=== PATIENT | male | born 1940 | race Caucasian/White ===

== ENCOUNTER 2022-06-01 19:50 | Inpatient (IN) | payer OTHER, BC ==
[2022-06-01 20:01] VITALS: BMI 27.4
[2022-06-01 21:06] LABS: VENOUS BASE EXCESS -0.8 mmol/L (-2-2); VENOUS PCO2 49.5 mmHg (38-52); VENOUS PH 7.335 (7.310-7.410)
[2022-06-01 21:09] LABS: BASO % 0.7 % (0-2.0); EOS % 1.8 % (0-4.5); HEMATOCRIT 47.8 % (35.4-49); HEMOGLOBIN 15.9 GM/dL (11.7-16.9); LYMPH % 8.9 % (8-40); MCH 30.1 pg (25.7-33.7); MCHC 33.2 g/dl (32.0-35.9); MEAN CELL VOLUME 90.7 fl (80-96); MONO % 8.8 % (3.8-10.2); NEUT % 79.8 % (42.8-82.8); PLATELET COUNT 257 10^3/uL (134-434); RBC 5.27 M/mm3 (4.00-5.60); RDW 15.1 % (11.9-15.9); WHITE BLOOD COUNT 10.3 K/mm3 (4.0-10.0)
[2022-06-01 21:25] LABS: BLOOD UREA NITROGEN 14.2 mg/dL (7-18); CALCIUM 8.9 mg/dL (8.5-10.1)
[2022-06-01 21:26] LABS: MAGNESIUM 2.2 mg/dL (1.8-2.4)
[2022-06-01 21:28] LABS: CREATININE 0.7 mg/dL (0.55-1.3)
[2022-06-01 21:30] LABS: BILIRUBIN,TOTAL 0.5 mg/dL (0.2-1)
[2022-06-01 21:33] LABS: N-TERMINAL BNP 896.9 pg/ml (5-450)
[2022-06-01 23:21] LABS: INR 1.52 (0.83-1.09); PROTHROMBIN TIME (PATIENT) 17.6 SEC (9.7-13.0)
[2022-06-01 23:24] LABS: ACTIVATED PTT 36.7 SECONDS (25.2-36.5)
[2022-06-02] MEDS ORDERED: IPRATROPIUM BR 0.02% 0.5 MG/2.5 ML VIAL.NEB. NEB PRN (06:26)
[2022-06-02] MEDS: LEVOTHYROXINE 100 MCG, LEVOTHYROXINE 75 MCG PO SCH (07:36)
[2022-06-02] MEDS: FUROSEMIDE 40 MG/4 ML INJECTABLE VIAL IVPUSH SCH ×2 (07:36→12:18)
[2022-06-02] MEDS: TAMSULOSIN HCL 0.4 MG CAP PO SCH (08:32)
[2022-06-02 08:54] LABS: HEMATOCRIT 48.7 % (35.4-49); HEMOGLOBIN 16.6 GM/dL (11.7-16.9); LYMPH % 11.5 % (8-40); MCH 30.7 pg (25.7-33.7); MCHC 34.1 g/dl (32.0-35.9); MONO % 10.7 % (3.8-10.2); NEUT % 70.8 % (42.8-82.8); PLATELET COUNT 250 10^3/uL (134-434); RDW 15.2 % (11.9-15.9); WHITE BLOOD COUNT 10.3 K/mm3 (4.0-10.0)
[2022-06-02 09:18] LABS: CALCIUM 9.6 mg/dL (8.5-10.1)
[2022-06-02 09:19] LABS: ALBUMIN 3.1 g/dl (3.4-5.0); BLOOD UREA NITROGEN 12.6 mg/dL (7-18); MAGNESIUM 2.2 mg/dL (1.8-2.4)
[2022-06-02 09:22] LABS: CREATININE 0.7 mg/dL (0.55-1.3); PHOSPHOROUS 3.4 mg/dL (2.5-4.9)
[2022-06-02 09:23] LABS: BILIRUBIN,TOTAL 0.8 mg/dL (0.2-1); TOT PROT 7.4 g/dl (6.4-8.2)
[2022-06-02] MEDS: METOPROLOL TARTRATE 25 MG TABLET (FP) PO SCH ×2 (09:43→21:12)
[2022-06-02] MEDS: predniSONE 10 MG TABLET (UD) PO SCH (09:43)
[2022-06-02] MEDS: APIXABAN 5 MG TABLET PO SCH ×2 (09:43→21:12)
[2022-06-02] MEDS: PANTOPRAZOLE 20 MG TABLET PO SCH (09:43)
[2022-06-02] MEDS: BUDESONIDE/FORMETEROL FUMARATE 80/4.5 mcg INHALER IH SCH ×2 (09:43→21:12)
[2022-06-02] MEDS: CITALOPRAM HYDROBROMIDE 20 MG TABLET PO SCH (09:43)
[2022-06-02] MEDS: MULTIVITAMINS (DAILY MVI) TABLET (FP) PO SCH (09:44)
[2022-06-02] MEDS ORDERED: LEVOTHYROXINE NA 125 MCG TABLET (FP) PO SCH (10:00)
[2022-06-02] MEDS: ATORVASTATIN CA 10 MG TABLET (FP) PO SCH (21:12)
[2022-06-03] MEDS: LEVOTHYROXINE 100 MCG, LEVOTHYROXINE 75 MCG PO SCH (06:19)
[2022-06-03] MEDS: TAMSULOSIN HCL 0.4 MG CAP PO SCH (08:14)
[2022-06-03 09:19] LABS: BASO % 0.7 % (0-2.0); EOS % 5.4 % (0-4.5); HEMATOCRIT 47.8 % (35.4-49); HEMOGLOBIN 15.8 GM/dL (11.7-16.9); LYMPH % 9.2 % (8-40); MCH 29.8 pg (25.7-33.7); MEAN CELL VOLUME 90.1 fl (80-96); MEAN PLT VOLUME 8.3 fl (7.5-11.1); NEUT % 73.7 % (42.8-82.8); PLATELET COUNT 260 10^3/uL (134-434); RBC 5.31 M/mm3 (4.00-5.60); WHITE BLOOD COUNT 10.9 K/mm3 (4.0-10.0)
[2022-06-03] MEDS: APIXABAN 5 MG TABLET PO SCH ×2 (09:29→22:47)
[2022-06-03] MEDS: MULTIVITAMINS (DAILY MVI) TABLET (FP) PO SCH (09:29)
[2022-06-03] MEDS: predniSONE 10 MG TABLET (UD) PO SCH (09:29)
[2022-06-03] MEDS: CITALOPRAM HYDROBROMIDE 20 MG TABLET PO SCH (09:29)
[2022-06-03] MEDS: FUROSEMIDE 40 MG TABLET (FP) PO SCH (09:29)
[2022-06-03] MEDS: METOPROLOL TARTRATE 25 MG TABLET (FP) PO SCH ×2 (09:29→22:47)
[2022-06-03] MEDS: PANTOPRAZOLE 20 MG TABLET PO SCH (09:29)
[2022-06-03] MEDS: BUDESONIDE/FORMETEROL FUMARATE 80/4.5 mcg INHALER IH SCH ×2 (09:30→22:47)
[2022-06-03 09:53] LABS: ALBUMIN 2.8 g/dl (3.4-5.0)
[2022-06-03 09:57] LABS: BILIRUBIN,TOTAL 0.8 mg/dL (0.2-1); TOT PROT 6.6 g/dl (6.4-8.2)
[2022-06-03 09:59] LABS: BLOOD UREA NITROGEN 17.7 mg/dL (7-18); CREATININE 0.7 mg/dL (0.55-1.3)
[2022-06-03] MEDS: ATORVASTATIN CA 10 MG TABLET (FP) PO SCH (22:47)
[2022-06-04] MEDS: LEVOTHYROXINE 100 MCG, LEVOTHYROXINE 75 MCG PO SCH (06:44)
[2022-06-04 08:59] LABS: BASO % 1.1 % (0-2.0); EOS % 6.2 % (0-4.5); HEMOGLOBIN 15.5 GM/dL (11.7-16.9); LYMPH % 12.7 % (8-40); MCH 29.7 pg (25.7-33.7); MEAN CELL VOLUME 89.9 fl (80-96); MEAN PLT VOLUME 8.3 fl (7.5-11.1); MONO % 12.1 % (3.8-10.2); NEUT % 67.9 % (42.8-82.8); PLATELET COUNT 238 10^3/uL (134-434); RBC 5.23 M/mm3 (4.00-5.60); RDW 14.7 % (11.9-15.9); WHITE BLOOD COUNT 9.3 K/mm3 (4.0-10.0)
[2022-06-04 09:16] LABS: ALBUMIN 2.7 g/dl (3.4-5.0); CALCIUM 8.8 mg/dL (8.5-10.1)
[2022-06-04 09:17] LABS: BLOOD UREA NITROGEN 16.1 mg/dL (7-18)
[2022-06-04 09:20] LABS: CREATININE 0.7 mg/dL (0.55-1.3)
[2022-06-04 09:21] LABS: BILIRUBIN,TOTAL 0.9 mg/dL (0.2-1); TOT PROT 6.4 g/dl (6.4-8.2)
[2022-06-04] MEDS ORDERED: INSULIN (NOVOLOG) ASPART 100 UNITS/ML 10ML VIAL ONE (11:08)
[2022-06-04] MEDS: APIXABAN 5 MG TABLET PO SCH ×2 (11:16→22:02)
[2022-06-04] MEDS: TAMSULOSIN HCL 0.4 MG CAP PO SCH (11:16)
[2022-06-04] MEDS: PANTOPRAZOLE 20 MG TABLET PO SCH (11:16)
[2022-06-04] MEDS: predniSONE 10 MG TABLET (UD) PO SCH (11:16)
[2022-06-04] MEDS: CITALOPRAM HYDROBROMIDE 20 MG TABLET PO SCH (11:16)
[2022-06-04] MEDS: METOPROLOL TARTRATE 25 MG TABLET (FP) PO SCH ×2 (11:16→22:11)
[2022-06-04] MEDS: FUROSEMIDE 40 MG TABLET (FP) PO SCH (11:16)
[2022-06-04] MEDS: MULTIVITAMINS (DAILY MVI) TABLET (FP) PO SCH (11:16)
[2022-06-04] MEDS: BUDESONIDE/FORMETEROL FUMARATE 80/4.5 mcg INHALER IH SCH ×2 (11:17→22:02)
[2022-06-04] MEDS: ATORVASTATIN CA 10 MG TABLET (FP) PO SCH (22:02)
[2022-06-05] MEDS: LEVOTHYROXINE 100 MCG, LEVOTHYROXINE 75 MCG PO SCH (06:07)
[2022-06-05 10:37] VITALS: BP 104/66; PULSE 105; RESP 20; TEMP 97.8
[2022-06-05] MEDS: METOPROLOL TARTRATE 25 MG TABLET (FP) PO SCH (10:40)
[2022-06-05] MEDS: TAMSULOSIN HCL 0.4 MG CAP PO SCH (10:40)
[2022-06-05] MEDS: BUDESONIDE/FORMETEROL FUMARATE 80/4.5 mcg INHALER IH SCH (10:40)
[2022-06-05] MEDS: MULTIVITAMINS (DAILY MVI) TABLET (FP) PO SCH (10:41)
[2022-06-05] MEDS: predniSONE 10 MG TABLET (UD) PO SCH (10:41)
[2022-06-05] MEDS: PANTOPRAZOLE 20 MG TABLET PO SCH (10:41)
[2022-06-05] MEDS: CITALOPRAM HYDROBROMIDE 20 MG TABLET PO SCH (10:41)
[2022-06-05] MEDS: FUROSEMIDE 40 MG TABLET (FP) PO SCH (10:41)
[2022-06-05] MEDS: APIXABAN 5 MG TABLET PO SCH (10:41)
== END 2022-06-05 12:50 | DRG 196 ==
LOC: JER 19:50 → JERBED 20:17 → J7W 06-02 06:41
PROVIDERS: ADMIT Internal Medicine; ATTEND Internal Medicine
DX: J84.9 Interstitial pulmonary disease, unspecified (principal); J96.21 Acute and chronic respiratory failure with hypoxia; J96.22 Acute and chronic respiratory failure with hypercapnia; C78.00 Secondary malignant neoplasm of unspecified lung; I50.30 Unspecified diastolic (congestive) heart failure; D72.829 Elevated white blood cell count, unspecified; I73.9 Peripheral vascular disease, unspecified; F32.A Depression, unspecified; C43.9 Malignant melanoma of skin, unspecified; E03.9 Hypothyroidism, unspecified; F03.90 Unspecified dementia, unspecified severity, without behavioral disturbance, psychotic disturbance, mood disturbance, and anxiety; I11.0 Hypertensive heart disease with heart failure; D64.9 Anemia, unspecified; I48.91 Unspecified atrial fibrillation; K21.9 Gastro-esophageal reflux disease without esophagitis; E78.5 Hyperlipidemia, unspecified; N40.0 Benign prostatic hyperplasia without lower urinary tract symptoms
CPT/HCPCS: 0241U-QW; 36415; 71045-TC-FY; 71275-TC; 80053; 82550; 82803; 83690; 83735; 83880; 84100; 84484; 85025; 85610; 85730; 93005; 93010; 97116-GP; 97161-GP; 99285-25

== ENCOUNTER 2023-03-07 21:02 | Inpatient (IN) | payer OTHER, BC ==
[2023-03-07 21:44] LABS: BASO % 0.5 % (0-2.0); EOS % 0.8 % (0-4.5); HEMATOCRIT 50.6 % (35.4-49); HEMOGLOBIN 16.8 GM/dL (11.7-16.9); LYMPH % 6.8 % (8-40); MCH 29.6 pg (25.7-33.7); MCHC 33.2 g/dl (32.0-35.9); MEAN CELL VOLUME 89.1 fl (80-96); MEAN PLT VOLUME 7.7 fl (7.5-11.1); MONO % 7.9 % (3.8-10.2); PLATELET COUNT 283 10^3/uL (134-434); RBC 5.68 M/mm3 (4.00-5.60); RDW 16.4 % (11.9-15.9); WHITE BLOOD COUNT 13.5 K/mm3 (4.0-10.0)
[2023-03-07 21:52] LABS: VENOUS BASE EXCESS 0.6 mmol/L (-2-2); VENOUS O2 SATURATION 46.1 % (70-80); VENOUS PCO2 50.4 mmHg (38-52); VENOUS PH 7.351 (7.310-7.410)
[2023-03-07 21:55] LABS: INR 1.56 (0.83-1.09)
[2023-03-07 21:58] LABS: ACTIVATED PTT 36.2 SECONDS (25.2-36.5)
[2023-03-07] MEDS ORDERED: ACETAMINOPHEN 1000 MG/100 ML BAG IVPB ONE (22:00)
[2023-03-07] MEDS ORDERED: ACETAMINOPHEN INJECTION 100 ML IVPB ONE (22:03)
[2023-03-07 22:04] LABS: POTASSIUM 3.9 mmol/L (3.5-5.1)
[2023-03-07 22:06] LABS: CALCIUM 8.6 mg/dL (8.5-10.1)
[2023-03-07 22:07] LABS: ALBUMIN 2.9 g/dl (3.4-5.0); MAGNESIUM 2.1 mg/dL (1.8-2.4)
[2023-03-07 22:11] LABS: BILIRUBIN,TOTAL 0.6 mg/dL (0.2-1); TOT PROT 7.2 g/dl (6.4-8.2)
[2023-03-07] MEDS ORDERED: PIPERACILLIN/TAZOB 3.375 GM 3.375 GM in DEXTROSE 5%-WATER - 50 ML IVPB ONE (23:28)
[2023-03-07] MEDS ORDERED: VANCOMYCIN 1,000 MG in DEXTROSE 5%-WATER - 250 ML IVPB ONE (23:28)
[2023-03-08] MEDS ORDERED: PIPERACILLIN/TAZOB 3.375 GM 3.375 GM/50 ML BAG IVPB ONE (00:04)
[2023-03-08] MEDS ORDERED: VANCOMYCIN 1 GRAM (PRE-DOCKED) 1,000 MG/250 ML BAG IVPB ONE (00:59)
[2023-03-08] MEDS ORDERED: IPRATROPIUM BR 0.02% 0.5 MG/2.5 ML VIAL.NEB. NEB PRN (06:07)
[2023-03-08 06:28] LABS: HEMATOCRIT 48.4 % (35.4-49); HEMOGLOBIN 15.7 GM/dL (11.7-16.9); MCH 29.5 pg (25.7-33.7); MCHC 32.4 g/dl (32.0-35.9); MEAN CELL VOLUME 90.9 fl (80-96); MEAN PLT VOLUME 7.8 fl (7.5-11.1); PLATELET COUNT 261 10^3/uL (134-434); RBC 5.33 M/mm3 (4.00-5.60); RDW 16.1 % (11.9-15.9); WHITE BLOOD COUNT 11.2 K/mm3 (4.0-10.0)
[2023-03-08 06:37] LABS: INR 1.45 (0.83-1.09); PROTHROMBIN TIME (PATIENT) 16.8 SEC (9.7-13.0)
[2023-03-08 06:47] LABS: POTASSIUM 3.7 mmol/L (3.5-5.1)
[2023-03-08 06:49] LABS: CALCIUM 8.4 mg/dL (8.5-10.1)
[2023-03-08 06:50] LABS: ALBUMIN 2.6 g/dl (3.4-5.0); BLOOD UREA NITROGEN 16.2 mg/dL (7-18)
[2023-03-08 06:53] LABS: CREATININE 0.9 mg/dL (0.55-1.3); PHOSPHOROUS 3.1 mg/dL (2.5-4.9)
[2023-03-08 06:55] LABS: TOT PROT 6.5 g/dl (6.4-8.2)
[2023-03-08] MEDS ORDERED: LEVOTHYROXINE NA 150 MCG TABLET PO SCH (07:00)
[2023-03-08 07:01] LABS: BILIRUBIN,DIRECT 0.2 mg/dL (0.0-0.2); BILIRUBIN,TOTAL 0.8 mg/dL (0.2-1)
[2023-03-08] MEDS ORDERED: FENTANYL CITRATE/PF 50 MCG/ML VIAL IVPUSH ONE (07:45)
[2023-03-08] MEDS ORDERED: MIDAZOLAM HCL 2 MG/2 ML SINGLE DOSE VIAL IVPUSH ONE (08:00)
[2023-03-08] MEDS ORDERED: PIPERACILLIN/TAZOB 3.375 GM 3.375 GM in DEXTROSE 5%-WATER - 50 ML IVPB SCH (10:00)
[2023-03-08] MEDS ORDERED: ACETAMINOPHEN 325 MG TABLET (FP) PO PRN (10:22)
[2023-03-08] MEDS: BUDESONIDE/FORMETEROL FUMARATE 80/4.5 mcg INHALER IH SCH ×2 (10:49→22:03)
[2023-03-08] MEDS: TAMSULOSIN HCL 0.4 MG CAP PO SCH (10:50)
[2023-03-08] MEDS: FUROSEMIDE 40 MG TABLET (FP) PO SCH (10:50)
[2023-03-08] MEDS: predniSONE 10 MG TABLET (UD) PO SCH (10:51)
[2023-03-08] MEDS: CITALOPRAM HYDROBROMIDE 20 MG TABLET PO SCH (10:51)
[2023-03-08] MEDS: PANTOPRAZOLE 40 MG TABLET PO SCH (10:51)
[2023-03-08] MEDS: METOPROLOL TARTRATE 25 MG TABLET (FP) PO SCH ×2 (10:51→22:03)
[2023-03-08] MEDS ORDERED: LEVOTHYROXINE NA 75 MCG TABLET (FP) ONE (16:54)
[2023-03-08] MEDS: LEVOTHYROXINE 75 MCG, LEVOTHYROXINE 100 MCG PO SCH (18:22)
[2023-03-08] MEDS: ATORVASTATIN CA 10 MG TABLET (FP) PO SCH (22:03)
[2023-03-09] MEDS ORDERED: ACETAMINOPHEN 1000 MG/100 ML BAG IVPB ONE (06:18)
[2023-03-09 06:32] LABS: HEMATOCRIT 45.9 % (35.4-49); MCH 29.8 pg (25.7-33.7); MCHC 32.8 g/dl (32.0-35.9); MEAN PLT VOLUME 7.8 fl (7.5-11.1); PLATELET COUNT 242 10^3/uL (134-434); RBC 5.04 M/mm3 (4.00-5.60); RDW 16.1 % (11.9-15.9); WHITE BLOOD COUNT 10.2 K/mm3 (4.0-10.0)
[2023-03-09 06:53] LABS: POTASSIUM 3.7 mmol/L (3.5-5.1)
[2023-03-09 06:56] LABS: CALCIUM 8.5 mg/dL (8.5-10.1); MAGNESIUM 1.9 mg/dL (1.8-2.4)
[2023-03-09 06:57] LABS: BLOOD UREA NITROGEN 14.3 mg/dL (7-18)
[2023-03-09] MEDS: LEVOTHYROXINE 75 MCG, LEVOTHYROXINE 100 MCG PO SCH (06:57)
[2023-03-09] MEDS: PANTOPRAZOLE 40 MG TABLET PO SCH (06:57)
[2023-03-09 07:00] LABS: CREATININE 0.7 mg/dL (0.55-1.3); PHOSPHOROUS 2.9 mg/dL (2.5-4.9)
[2023-03-09] MEDS: FUROSEMIDE 40 MG TABLET (FP) PO SCH (10:00)
[2023-03-09] MEDS: CITALOPRAM HYDROBROMIDE 20 MG TABLET PO SCH (10:00)
[2023-03-09] MEDS: predniSONE 10 MG TABLET (UD) PO SCH (10:00)
[2023-03-09] MEDS: TAMSULOSIN HCL 0.4 MG CAP PO SCH (10:01)
[2023-03-09] MEDS: METOPROLOL TARTRATE 25 MG TABLET (FP) PO SCH ×2 (10:01→21:37)
[2023-03-09] MEDS: BUDESONIDE/FORMETEROL FUMARATE 80/4.5 mcg INHALER IH SCH ×2 (10:01→21:39)
[2023-03-09] MEDS: APIXABAN 5 MG TABLET PO SCH ×2 (15:01→21:37)
[2023-03-09] MEDS: ATORVASTATIN CA 10 MG TABLET (FP) PO SCH (21:38)
[2023-03-10] MEDS: PANTOPRAZOLE 40 MG TABLET PO SCH (06:01)
[2023-03-10] MEDS: LEVOTHYROXINE 75 MCG, LEVOTHYROXINE 100 MCG PO SCH (06:02)
[2023-03-10 07:22] LABS: BASO % 0.7 % (0-2.0); EOS % 3.9 % (0-4.5); HEMATOCRIT 46.9 % (35.4-49); LYMPH % 11.6 % (8-40); MCH 29.3 pg (25.7-33.7); MEAN CELL VOLUME 91.5 fl (80-96); MONO % 9.3 % (3.8-10.2); NEUT % 74.5 % (42.8-82.8); PLATELET COUNT 256 10^3/uL (134-434); RBC 5.13 M/mm3 (4.00-5.60); RDW 16.3 % (11.9-15.9); WHITE BLOOD COUNT 10.2 K/mm3 (4.0-10.0)
[2023-03-10 07:29] LABS: POTASSIUM 3.9 mmol/L (3.5-5.1)
[2023-03-10 07:34] LABS: CALCIUM 8.2 mg/dL (8.5-10.1)
[2023-03-10 07:35] LABS: ALBUMIN 2.3 g/dl (3.4-5.0); BLOOD UREA NITROGEN 16.8 mg/dL (7-18); MAGNESIUM 2.1 mg/dL (1.8-2.4)
[2023-03-10 07:38] LABS: CREATININE 0.8 mg/dL (0.55-1.3); PHOSPHOROUS 2.6 mg/dL (2.5-4.9)
[2023-03-10 07:39] LABS: BILIRUBIN,TOTAL 0.8 mg/dL (0.2-1)
[2023-03-10] MEDS: TAMSULOSIN HCL 0.4 MG CAP PO SCH (11:06)
[2023-03-10] MEDS: CITALOPRAM HYDROBROMIDE 20 MG TABLET PO SCH (11:06)
[2023-03-10] MEDS: BUDESONIDE/FORMETEROL FUMARATE 80/4.5 mcg INHALER IH SCH ×2 (11:07→21:05)
[2023-03-10] MEDS: METOPROLOL TARTRATE 25 MG TABLET (FP) PO SCH ×2 (11:07→21:04)
[2023-03-10] MEDS: predniSONE 10 MG TABLET (UD) PO SCH (11:07)
[2023-03-10] MEDS: APIXABAN 5 MG TABLET PO SCH ×2 (11:07→21:04)
[2023-03-10] MEDS: FUROSEMIDE 40 MG TABLET (FP) PO SCH (11:07)
[2023-03-10] MEDS: ATORVASTATIN CA 10 MG TABLET (FP) PO SCH (21:04)
[2023-03-11] MEDS: LEVOTHYROXINE 75 MCG, LEVOTHYROXINE 100 MCG PO SCH (06:07)
[2023-03-11] MEDS: PANTOPRAZOLE 40 MG TABLET PO SCH (06:07)
[2023-03-11 07:14] LABS: POTASSIUM 3.6 mmol/L (3.5-5.1)
[2023-03-11 07:21] LABS: ALBUMIN 2.6 g/dl (3.4-5.0); CALCIUM 8.4 mg/dL (8.5-10.1)
[2023-03-11 07:24] LABS: CREATININE 0.8 mg/dL (0.55-1.3); PHOSPHOROUS 2.4 mg/dL (2.5-4.9)
[2023-03-11 07:25] LABS: BILIRUBIN,TOTAL 0.9 mg/dL (0.2-1)
[2023-03-11 07:26] LABS: TOT PROT 6.8 g/dl (6.4-8.2)
[2023-03-11] MEDS: CITALOPRAM HYDROBROMIDE 20 MG TABLET PO SCH (10:17)
[2023-03-11] MEDS: APIXABAN 5 MG TABLET PO SCH ×2 (10:17→21:12)
[2023-03-11] MEDS: FUROSEMIDE 40 MG TABLET (FP) PO SCH (10:17)
[2023-03-11] MEDS: predniSONE 10 MG TABLET (UD) PO SCH (10:17)
[2023-03-11] MEDS: METOPROLOL TARTRATE 25 MG TABLET (FP) PO SCH ×2 (10:18→21:12)
[2023-03-11] MEDS: BUDESONIDE/FORMETEROL FUMARATE 80/4.5 mcg INHALER IH SCH ×2 (10:18→21:13)
[2023-03-11] MEDS: TAMSULOSIN HCL 0.4 MG CAP PO SCH (10:55)
[2023-03-11] MEDS ORDERED: MECLIZINE HCL 25 MG TABLET (FP) PO PRN (13:31)
[2023-03-11] MEDS ORDERED: IPRATROPIUM BR 0.02% 0.5 MG/2.5 ML VIAL.NEB. NEB PRN (13:34)
[2023-03-11] MEDS ORDERED: IPRATROPIUM BR 0.02% 0.5 MG/2.5 ML VIAL.NEB. NEB SCH (13:45)
[2023-03-11] MEDS ORDERED: LIDOCAINE HCL/PF 2% SDV 5ML VIAL INF ONE (15:45)
[2023-03-11] MEDS: DOXYCYCLINE INJECTION 100 MG in DEXTROSE 5%-WATER 100 ML IVPB SCH ×2 (16:48→21:12)
[2023-03-11] MEDS: PANTOPRAZOLE 20 MG TABLET PO SCH (21:12)
[2023-03-11] MEDS: ATORVASTATIN CA 10 MG TABLET (FP) PO SCH (21:12)
[2023-03-11] MEDS: MELATONIN 1 MG TABLET PO SCH (21:13)
[2023-03-11] MEDS ORDERED: ACETAMINOPHEN 325 MG TABLET (FP) PO PRN (23:49)
[2023-03-12] MEDS: LEVOTHYROXINE NA 75 MCG TABLET (FP) PO SCH (06:02)
[2023-03-12] MEDS: TAMSULOSIN HCL 0.4 MG CAP PO SCH (08:39)
[2023-03-12] MEDS: PANTOPRAZOLE 20 MG TABLET PO SCH ×2 (09:50→21:23)
[2023-03-12] MEDS: predniSONE 10 MG TABLET (UD) PO SCH (09:50)
[2023-03-12] MEDS: FUROSEMIDE 20 MG TABLET (FP) PO SCH (09:50)
[2023-03-12] MEDS: METOPROLOL TARTRATE 25 MG TABLET (FP) PO SCH ×2 (09:51→21:28)
[2023-03-12] MEDS: MULTIVITAMINS (DAILY MVI) TABLET (FP) PO SCH (09:51)
[2023-03-12] MEDS: APIXABAN 5 MG TABLET PO SCH ×2 (09:51→21:23)
[2023-03-12] MEDS: DOXYCYCLINE INJECTION 100 MG in DEXTROSE 5%-WATER 100 ML IVPB SCH ×2 (09:51→21:18)
[2023-03-12] MEDS: BUDESONIDE/FORMETEROL FUMARATE 80/4.5 mcg INHALER IH SCH ×2 (09:52→21:48)
[2023-03-12] MEDS ORDERED: CITALOPRAM HYDROBROMIDE 20 MG TABLET PO SCH (10:00)
[2023-03-12 19:45] LABS: BASO % 0.3 % (0-2.0); EOS % 1.7 % (0-4.5); HEMATOCRIT 49.3 % (35.4-49); HEMOGLOBIN 16.6 GM/dL (11.7-16.9); LYMPH % 7.4 % (8-40); MCHC 33.6 g/dl (32.0-35.9); MEAN CELL VOLUME 89.3 fl (80-96); MEAN PLT VOLUME 7.9 fl (7.5-11.1); MONO % 8.4 % (3.8-10.2); NEUT % 82.2 % (42.8-82.8); PLATELET COUNT 288 10^3/uL (134-434); RBC 5.52 M/mm3 (4.00-5.60); RDW 16.2 % (11.9-15.9); WHITE BLOOD COUNT 10.3 K/mm3 (4.0-10.0)
[2023-03-12] MEDS: MELATONIN 1 MG TABLET PO SCH (21:23)
[2023-03-12] MEDS: ATORVASTATIN CA 10 MG TABLET (FP) PO SCH (21:23)
[2023-03-13] MEDS: LEVOTHYROXINE NA 75 MCG TABLET (FP) PO SCH (06:09)
[2023-03-13] MEDS: PANTOPRAZOLE 20 MG TABLET PO SCH ×2 (09:03→21:45)
[2023-03-13] MEDS: APIXABAN 5 MG TABLET PO SCH ×4 (09:04→21:45)
[2023-03-13] MEDS: predniSONE 10 MG TABLET (UD) PO SCH (09:04)
[2023-03-13] MEDS: TAMSULOSIN HCL 0.4 MG CAP PO SCH (09:04)
[2023-03-13] MEDS: METOPROLOL TARTRATE 25 MG TABLET (FP) PO SCH ×2 (09:04→21:46)
[2023-03-13] MEDS: FUROSEMIDE 20 MG TABLET (FP) PO SCH (09:04)
[2023-03-13] MEDS: MULTIVITAMINS (DAILY MVI) TABLET (FP) PO SCH (09:04)
[2023-03-13] MEDS: DOXYCYCLINE INJECTION 100 MG in DEXTROSE 5%-WATER 100 ML IVPB SCH (09:59)
[2023-03-13] MEDS: BUDESONIDE/FORMETEROL FUMARATE 80/4.5 mcg INHALER IH SCH ×2 (09:59→21:47)
[2023-03-13] MEDS: CITALOPRAM HYDROBROMIDE 20 MG TABLET PO SCH (12:19)
[2023-03-13 15:07] VITALS: BMI 25.8
[2023-03-13] MEDS: DOXYCYCLINE HYCLATE 100 MG CAPSULE PO SCH (17:34)
[2023-03-13] MEDS: ATORVASTATIN CA 10 MG TABLET (FP) PO SCH (21:45)
[2023-03-13] MEDS: MELATONIN 1 MG TABLET PO SCH (21:45)
[2023-03-14] MEDS: LEVOTHYROXINE NA 75 MCG TABLET (FP) PO SCH (06:43)
[2023-03-14] MEDS: TAMSULOSIN HCL 0.4 MG CAP PO SCH (08:32)
[2023-03-14] MEDS: predniSONE 10 MG TABLET (UD) PO SCH (10:08)
[2023-03-14] MEDS: APIXABAN 5 MG TABLET PO SCH ×2 (10:08→22:09)
[2023-03-14] MEDS: PANTOPRAZOLE 20 MG TABLET PO SCH ×2 (10:08→22:09)
[2023-03-14] MEDS: MULTIVITAMINS (DAILY MVI) TABLET (FP) PO SCH (10:08)
[2023-03-14] MEDS: FUROSEMIDE 20 MG TABLET (FP) PO SCH (10:08)
[2023-03-14] MEDS: CITALOPRAM HYDROBROMIDE 20 MG TABLET PO SCH (10:08)
[2023-03-14] MEDS: METOPROLOL TARTRATE 25 MG TABLET (FP) PO SCH ×2 (10:08→22:09)
[2023-03-14] MEDS: DOXYCYCLINE HYCLATE 100 MG CAPSULE PO SCH ×2 (10:08→17:48)
[2023-03-14] MEDS: BUDESONIDE/FORMETEROL FUMARATE 80/4.5 mcg INHALER IH SCH ×2 (10:09→22:10)
[2023-03-14] MEDS ORDERED: POLYETHYLENE GLYCOL (HEALTHYLAX) 3350 17 GM PACKET PO SCH (14:30)
[2023-03-14 17:06] VITALS: RESP 20
[2023-03-14] MEDS: MELATONIN 1 MG TABLET PO SCH (22:08)
[2023-03-14] MEDS: ATORVASTATIN CA 10 MG TABLET (FP) PO SCH (22:09)
[2023-03-14 22:18] VITALS: BP 103/63; PULSE 95; TEMP 97.9
== END 2023-03-15 02:41 | DRG 199 ==
LOC: JER 21:02 → JERBED 03-08 02:47 → JICU 03-08 05:08 → J7W 03-11 23:17
PROVIDERS: ADMIT Internal Medicine Pulmonary Disease; ATTEND Internal Medicine
PROC: 0W9930Z Drainage of Right Pleural Cavity with Drainage Device, Percutaneous Approach (ICD-10-PCS; principal; 2023-03-08)
PROC: 0Y9H3ZZ Drainage of Right Lower Leg, Percutaneous Approach (ICD-10-PCS; 2023-03-11)
DX: J93.9 Pneumothorax, unspecified (principal); J96.21 Acute and chronic respiratory failure with hypoxia; J84.9 Interstitial pulmonary disease, unspecified; L03.115 Cellulitis of right lower limb; F03.90 Unspecified dementia, unspecified severity, without behavioral disturbance, psychotic disturbance, mood disturbance, and anxiety; J44.9 Chronic obstructive pulmonary disease, unspecified; I48.91 Unspecified atrial fibrillation; I11.0 Hypertensive heart disease with heart failure; I50.9 Heart failure, unspecified; D38.1 Neoplasm of uncertain behavior of trachea, bronchus and lung; K21.9 Gastro-esophageal reflux disease without esophagitis; E78.5 Hyperlipidemia, unspecified
CPT/HCPCS: 0241U-QW; 36415; 71045-TC-FY; 71250-TC; 73610-TC-RT-FY; 73630-TC-RT-FY; 80048; 80053; 80076; 82803; 83735; 84100; 84484; 85025; 85027; 85610; 85730; 86301; 87070; 87075; 87205; 87635; 88108; 88305-TC; 93005; 93010; 97116-GP; 97161-GP; 99285-25

== ENCOUNTER 2023-04-09 16:43 | Inpatient (IN) | payer OTHER ==
[2023-04-09] MEDS ORDERED: methylPREDNISolone NA SUCC 125 MG/2 ML VIAL IVPUSH ONE (17:11)
[2023-04-09] MEDS ORDERED: ALBUTEROL SO4 2.5/IPRATROPIUM 0.5 INH SOL 3 ML VIAL.NEB. NEB ONE (17:13)
[2023-04-09] MEDS: ALBUTEROL SO4 2.5/IPRATROPIUM 0.5 INH SOL 3 ML VIAL.NEB. NEB SCH ×2 (17:23→17:24)
[2023-04-09] MEDS ORDERED: methylPREDNISolone NA SUCC 125 MG/2 ML VIAL ONE (17:25)
[2023-04-09 17:27] LABS: EOS % 1.5 % (0-4.5); HEMATOCRIT 49.6 % (35.4-49); HEMOGLOBIN 16.5 GM/dL (11.7-16.9); LYMPH % 6.9 % (8-40); MCH 30.1 pg (25.7-33.7); MCHC 33.2 g/dl (32.0-35.9); MEAN CELL VOLUME 90.8 fl (80-96); MEAN PLT VOLUME 7.4 fl (7.5-11.1); MONO % 9.4 % (3.8-10.2); NEUT % 81.2 % (42.8-82.8); PLATELET COUNT 230 10^3/uL (134-434); RBC 5.46 M/mm3 (4.00-5.60); RDW 15.8 % (11.9-15.9); WHITE BLOOD COUNT 7.6 K/mm3 (4.0-10.0)
[2023-04-09] MEDS ORDERED: VANCOMYCIN 1,000 MG in DEXTROSE 5%-WATER - 250 ML IVPB ONE (17:29)
[2023-04-09] MEDS ORDERED: PIPERACILLIN/TAZOB 4.5 GM 4.5 GM in DEXTROSE 5%-WATER 100 ML IVPB ONE (17:29)
[2023-04-09 17:35] LABS: VENOUS BASE EXCESS -0.5 mmol/L (-2-2); VENOUS O2 SATURATION 60.9 % (70-80); VENOUS PCO2 47.2 mmHg (38-52); VENOUS PH 7.353 (7.310-7.410)
[2023-04-09 17:38] LABS: INR 1.46 (0.83-1.09); PROTHROMBIN TIME (PATIENT) 16.9 SEC (9.7-13.0)
[2023-04-09 17:40] LABS: ACTIVATED PTT 38.2 SECONDS (25.2-36.5)
[2023-04-09] MEDS ORDERED: VANCOMYCIN 1 GRAM (PRE-DOCKED) 1,000 MG/250 ML BAG IVPB ONE (17:44)
[2023-04-09] MEDS ORDERED: PIPERACILLIN/TAZOB 4.5 GM 4.5 GM/100 ML BAG IVPB ONE (17:44)
[2023-04-09 17:55] LABS: POTASSIUM 4.2 mmol/L (3.5-5.1)
[2023-04-09 17:56] LABS: CALCIUM 8.6 mg/dL (8.5-10.1)
[2023-04-09 17:58] LABS: ALBUMIN 2.7 g/dl (3.4-5.0)
[2023-04-09 18:01] LABS: CREATININE 1.1 mg/dL (0.55-1.3)
[2023-04-09 18:02] LABS: BILIRUBIN,TOTAL 0.4 mg/dL (0.2-1)
[2023-04-09 18:04] LABS: N-TERMINAL BNP 901.8 pg/ml (5-450)
[2023-04-09] MEDS ORDERED: AMIODARONE HCL INJECTION 150 MG in DEXTROSE 5%-WATER - 100 ML IVPB ONE (20:08)
[2023-04-09] MEDS ORDERED: AMIODARONE IN DEXTROSE,ISO-OSM 360 MG/200 ML BAG IV SCH (20:15)
[2023-04-09] MEDS ORDERED: AMIODARONE IN DEXTROSE,ISO-OSM 150 MG/100 ML BAG ONE (20:38)
[2023-04-09] MEDS ORDERED: ALBUTEROL SO4 0.083% IH SOL 2.5 MG/3 ML VIAL.NEB. NEB PRN (20:40)
[2023-04-09] MEDS: AMIODARONE IN DEXTROSE,ISO-OSM 360 MG/200 ML BAG IV SCH (21:33)
[2023-04-09] MEDS ORDERED: REMDESIVIR 200 MG in SODIUM CHLORIDE 250 ML IVPB ONE (22:00)
[2023-04-09 22:36] LABS: EPI CELLS 0 /uL (0-25.1); HYALINE CASTS 1 /uL (0-3.1); PH,URINE 5.5 (5.0-8.0); URINE APPEARANCE CLOUDY; URINE BACTERIA 5745 /uL (0-1359); URINE BILIRUBIN NEGATIVE (NEGATIVE); URINE COLOR YELLOW; URINE GLUCOSE (UA) NEGATIVE (NEGATIVE); URINE KETONE NEGATIVE (NEGATIVE); URINE LEUK ESTERASE 2+ (NEGATIVE); URINE NITRITE NEGATIVE (NEGATIVE); URINE PROTEIN 1+ (NEGATIVE); URINE RBC 111 /uL (0-23.9); URINE WBC 1045 /uL (0-25.8)
[2023-04-09] MEDS: CHLORHEXIDINE GLUCONATE 4% CLEANSER FOR DECOLONIZATION TP SCH (22:58)
[2023-04-09] MEDS: APIXABAN 5 MG TABLET PO SCH (22:58)
[2023-04-09] MEDS: OSELTAMIVIR PHOSPHATE 75 MG CAPSULE PO SCH (22:58)
[2023-04-09] MEDS: MUPIROCIN 2% TOPICAL OINTMENT FOR DECOLONIZATION NS SCH (22:59)
[2023-04-10] MEDS: PIPERACILLIN/TAZOB 4.5 GM 4.5 GM in DEXTROSE 5%-WATER 100 ML IVPB SCH ×4 (01:26→17:07)
[2023-04-10 06:41] LABS: POTASSIUM 3.9 mmol/L (3.5-5.1)
[2023-04-10 06:43] LABS: BASO % 0.1 % (0-2.0); CALCIUM 8.8 mg/dL (8.5-10.1); HEMATOCRIT 45.3 % (35.4-49); HEMOGLOBIN 15.3 GM/dL (11.7-16.9); LYMPH % 9.1 % (8-40); MCH 30.6 pg (25.7-33.7); MCHC 33.7 g/dl (32.0-35.9); MEAN CELL VOLUME 90.8 fl (80-96); MEAN PLT VOLUME 7.9 fl (7.5-11.1); MONO % 8.2 % (3.8-10.2); NEUT % 82.6 % (42.8-82.8); PLATELET COUNT 173 10^3/uL (134-434); RBC 4.99 M/mm3 (4.00-5.60); RDW 15.5 % (11.9-15.9); WHITE BLOOD COUNT 6.5 K/mm3 (4.0-10.0)
[2023-04-10 06:44] LABS: ALBUMIN 2.5 g/dl (3.4-5.0); BLOOD UREA NITROGEN 14.5 mg/dL (7-18)
[2023-04-10 06:47] LABS: CREATININE 0.8 mg/dL (0.55-1.3); PHOSPHOROUS 3.4 mg/dL (2.5-4.9); TOT PROT 6.5 g/dl (6.4-8.2)
[2023-04-10 06:49] LABS: BILIRUBIN,TOTAL 0.4 mg/dL (0.2-1)
[2023-04-10] MEDS: ALBUTEROL SO4 2.5/IPRATROPIUM 0.5 INH SOL 3 ML VIAL.NEB. NEB SCH ×4 (07:50→20:54)
[2023-04-10] MEDS ORDERED: PROCHLORPERAZINE MALEATE 5 MG TABLET PO PRN ×2 (08:00→08:05)
[2023-04-10] MEDS ORDERED: TRIMETHOBENZAMIDE HCL 200MG/2ML INJ IM PRN (08:03)
[2023-04-10] MEDS: APIXABAN 5 MG TABLET PO SCH ×2 (09:24→21:59)
[2023-04-10] MEDS: AMIODARONE IN DEXTROSE,ISO-OSM 360 MG/200 ML BAG IV SCH (09:24)
[2023-04-10] MEDS: OSELTAMIVIR PHOSPHATE 75 MG CAPSULE PO SCH ×2 (09:24→21:59)
[2023-04-10] MEDS: MUPIROCIN 2% TOPICAL OINTMENT FOR DECOLONIZATION NS SCH ×2 (09:24→21:59)
[2023-04-10] MEDS: PANTOPRAZOLE SODIUM 40 MG VIAL IVPUSH SCH (09:29)
[2023-04-10] MEDS ORDERED: DEXAMETHASONE SOD PHOSPHATE 10 MG/1 ML VIAL IVPUSH SCH (10:00)
[2023-04-10] MEDS ORDERED: MECLIZINE HCL 25 MG TABLET (FP) PO PRN (12:50)
[2023-04-10] MEDS: METOPROLOL TARTRATE 25 MG TABLET (FP) PO SCH ×2 (13:34→22:00)
[2023-04-10] MEDS: methylPREDNISolone NA SUCC 40 MG/1 ML VIAL IVPUSH SCH (17:07)
[2023-04-10] MEDS ORDERED: PIPERACILLIN/TAZOB 4.5 GM 4.5 GM in DEXTROSE 5%-WATER 100 ML IVPB SCH (18:00)
[2023-04-10] MEDS: REMDESIVIR 100 MG in SODIUM CHLORIDE 250 ML IVPB SCH (21:58)
[2023-04-10] MEDS: DOCUSATE SODIUM 100 MG CAPSULE (FP) PO SCH (21:59)
[2023-04-10] MEDS: LIDOCAINE PATCH REMOVAL MC SCH (21:59)
[2023-04-10] MEDS: ATORVASTATIN CA 10 MG TABLET (FP) PO SCH (21:59)
[2023-04-10] MEDS: CHLORHEXIDINE GLUCONATE 4% CLEANSER FOR DECOLONIZATION TP SCH (21:59)
[2023-04-10] MEDS ORDERED: REMDESIVIR 100 MG in SODIUM CHLORIDE 250 ML IVPB SCH (22:00)
[2023-04-10] MEDS ORDERED: MELATONIN 1 MG TABLET PO SCH (22:00)
[2023-04-11] MEDS: PIPERACILLIN/TAZOB 4.5 GM 4.5 GM in DEXTROSE 5%-WATER 100 ML IVPB SCH ×3 (02:18→17:51)
[2023-04-11] MEDS: methylPREDNISolone NA SUCC 40 MG/1 ML VIAL IVPUSH SCH ×3 (02:18→17:51)
[2023-04-11] MEDS: LEVOTHYROXINE NA 125 MCG TABLET (FP) PO SCH (06:01)
[2023-04-11 06:57] LABS: BASO % 0.1 % (0-2.0); HEMATOCRIT 44.4 % (35.4-49); HEMOGLOBIN 14.9 GM/dL (11.7-16.9); LYMPH % 7.9 % (8-40); MCH 30.6 pg (25.7-33.7); MCHC 33.6 g/dl (32.0-35.9); MEAN PLT VOLUME 8.1 fl (7.5-11.1); MONO % 5.5 % (3.8-10.2); NEUT % 86.5 % (42.8-82.8); PLATELET COUNT 175 10^3/uL (134-434); RBC 4.88 M/mm3 (4.00-5.60); RDW 15.7 % (11.9-15.9); WHITE BLOOD COUNT 7.5 K/mm3 (4.0-10.0)
[2023-04-11 07:11] LABS: POTASSIUM 4.2 mmol/L (3.5-5.1)
[2023-04-11 07:18] LABS: ALBUMIN 2.4 g/dl (3.4-5.0); BLOOD UREA NITROGEN 21.4 mg/dL (7-18); CALCIUM 8.6 mg/dL (8.5-10.1); MAGNESIUM 1.9 mg/dL (1.8-2.4)
[2023-04-11 07:21] LABS: CREATININE 0.8 mg/dL (0.55-1.3); PHOSPHOROUS 3.2 mg/dL (2.5-4.9)
[2023-04-11 07:23] LABS: TOT PROT 6.3 g/dl (6.4-8.2)
[2023-04-11] MEDS: ALBUTEROL SO4 2.5/IPRATROPIUM 0.5 INH SOL 3 ML VIAL.NEB. NEB SCH ×4 (07:40→20:46)
[2023-04-11 08:32] LABS: BILIRUBIN,TOTAL 0.4 mg/dL (0.2-1)
[2023-04-11] MEDS: LIDOCAINE 4% PATCH TP PRN (09:49)
[2023-04-11] MEDS: METOPROLOL TARTRATE 25 MG TABLET (FP) PO SCH ×2 (09:50→22:24)
[2023-04-11] MEDS: OSELTAMIVIR PHOSPHATE 75 MG CAPSULE PO SCH ×2 (09:50→22:24)
[2023-04-11] MEDS: POLYETHYLENE GLYCOL (HEALTHYLAX) 3350 17 GM PACKET PO SCH (09:51)
[2023-04-11] MEDS: MULTIVITAMINS (DAILY MVI) TABLET (FP) PO SCH (09:51)
[2023-04-11] MEDS: TAMSULOSIN HCL 0.4 MG CAP PO SCH (09:51)
[2023-04-11] MEDS: PANTOPRAZOLE SODIUM 40 MG VIAL IVPUSH SCH (09:51)
[2023-04-11] MEDS: CITALOPRAM HYDROBROMIDE 20 MG TABLET PO SCH (09:51)
[2023-04-11] MEDS: MUPIROCIN 2% TOPICAL OINTMENT FOR DECOLONIZATION NS SCH ×2 (09:52→22:23)
[2023-04-11] MEDS: APIXABAN 5 MG TABLET PO SCH ×2 (09:52→22:24)
[2023-04-11] MEDS: DOCUSATE SODIUM 100 MG CAPSULE (FP) PO SCH (22:23)
[2023-04-11] MEDS: ATORVASTATIN CA 10 MG TABLET (FP) PO SCH (22:24)
[2023-04-11] MEDS: MELATONIN 5 MG TABLETS PO SCH (22:24)
[2023-04-11] MEDS: LIDOCAINE PATCH REMOVAL MC SCH (22:24)
[2023-04-11] MEDS: CHLORHEXIDINE GLUCONATE 4% CLEANSER FOR DECOLONIZATION TP SCH (22:24)
[2023-04-11] MEDS: REMDESIVIR 100 MG in SODIUM CHLORIDE 250 ML IVPB SCH (22:35)
[2023-04-12] MEDS: methylPREDNISolone NA SUCC 40 MG/1 ML VIAL IVPUSH SCH ×3 (01:00→17:09)
[2023-04-12] MEDS: PIPERACILLIN/TAZOB 4.5 GM 4.5 GM in DEXTROSE 5%-WATER 100 ML IVPB SCH ×3 (02:02→17:09)
[2023-04-12] MEDS: LEVOTHYROXINE NA 125 MCG TABLET (FP) PO SCH (06:28)
[2023-04-12 07:03] LABS: BASO % 0.1 % (0-2.0); HEMATOCRIT 42.7 % (35.4-49); HEMOGLOBIN 14.4 GM/dL (11.7-16.9); LYMPH % 7.3 % (8-40); MCH 30.5 pg (25.7-33.7); MCHC 33.8 g/dl (32.0-35.9); MEAN CELL VOLUME 90.2 fl (80-96); MEAN PLT VOLUME 8.2 fl (7.5-11.1); MONO % 8.3 % (3.8-10.2); NEUT % 84.3 % (42.8-82.8); PLATELET COUNT 182 10^3/uL (134-434); RBC 4.73 M/mm3 (4.00-5.60); WHITE BLOOD COUNT 7.8 K/mm3 (4.0-10.0)
[2023-04-12] MEDS: ALBUTEROL SO4 2.5/IPRATROPIUM 0.5 INH SOL 3 ML VIAL.NEB. NEB SCH ×4 (07:20→20:30)
[2023-04-12 07:22] LABS: POTASSIUM 4.2 mmol/L (3.5-5.1)
[2023-04-12 07:26] LABS: ALBUMIN 2.5 g/dl (3.4-5.0); BLOOD UREA NITROGEN 25.3 mg/dL (7-18); CALCIUM 8.8 mg/dL (8.5-10.1); MAGNESIUM 1.8 mg/dL (1.8-2.4)
[2023-04-12 07:29] LABS: CREATININE 0.9 mg/dL (0.55-1.3); PHOSPHOROUS 2.7 mg/dL (2.5-4.9)
[2023-04-12 07:30] LABS: TOT PROT 6.4 g/dl (6.4-8.2)
[2023-04-12 07:32] LABS: BILIRUBIN,TOTAL 0.3 mg/dL (0.2-1)
[2023-04-12] MEDS: OSELTAMIVIR PHOSPHATE 75 MG CAPSULE PO SCH ×2 (09:33→22:13)
[2023-04-12] MEDS: TAMSULOSIN HCL 0.4 MG CAP PO SCH (09:33)
[2023-04-12] MEDS: APIXABAN 5 MG TABLET PO SCH ×2 (09:33→22:15)
[2023-04-12] MEDS: PANTOPRAZOLE SODIUM 40 MG VIAL IVPUSH SCH (09:33)
[2023-04-12] MEDS: MUPIROCIN 2% TOPICAL OINTMENT FOR DECOLONIZATION NS SCH ×2 (09:33→22:05)
[2023-04-12] MEDS: POLYETHYLENE GLYCOL (HEALTHYLAX) 3350 17 GM PACKET PO SCH (09:33)
[2023-04-12] MEDS: MULTIVITAMINS (DAILY MVI) TABLET (FP) PO SCH (09:33)
[2023-04-12] MEDS: CITALOPRAM HYDROBROMIDE 20 MG TABLET PO SCH (09:33)
[2023-04-12] MEDS: METOPROLOL TARTRATE 25 MG TABLET (FP) PO SCH ×2 (09:33→22:10)
[2023-04-12] MEDS: ATORVASTATIN CA 10 MG TABLET (FP) PO SCH (22:10)
[2023-04-12] MEDS: MELATONIN 5 MG TABLETS PO SCH (22:13)
[2023-04-12] MEDS: DOCUSATE SODIUM 100 MG CAPSULE (FP) PO SCH (22:14)
[2023-04-12] MEDS: CHLORHEXIDINE GLUCONATE 4% CLEANSER FOR DECOLONIZATION TP SCH (22:15)
[2023-04-12] MEDS: LIDOCAINE PATCH REMOVAL MC SCH (22:15)
[2023-04-12] MEDS: REMDESIVIR 100 MG in SODIUM CHLORIDE 250 ML IVPB SCH (22:15)
[2023-04-13] MEDS: PIPERACILLIN/TAZOB 4.5 GM 4.5 GM in DEXTROSE 5%-WATER 100 ML IVPB SCH ×3 (01:26→18:53)
[2023-04-13] MEDS: methylPREDNISolone NA SUCC 40 MG/1 ML VIAL IVPUSH SCH ×3 (01:26→18:53)
[2023-04-13] MEDS: LEVOTHYROXINE NA 125 MCG TABLET (FP) PO SCH (06:19)
[2023-04-13] MEDS: ALBUTEROL SO4 2.5/IPRATROPIUM 0.5 INH SOL 3 ML VIAL.NEB. NEB SCH ×4 (07:20→20:05)
[2023-04-13] MEDS: POLYETHYLENE GLYCOL (HEALTHYLAX) 3350 17 GM PACKET PO SCH (10:38)
[2023-04-13] MEDS: PANTOPRAZOLE SODIUM 40 MG VIAL IVPUSH SCH (10:38)
[2023-04-13] MEDS: OSELTAMIVIR PHOSPHATE 75 MG CAPSULE PO SCH ×2 (10:38→21:40)
[2023-04-13] MEDS: MULTIVITAMINS (DAILY MVI) TABLET (FP) PO SCH (10:39)
[2023-04-13] MEDS: METOPROLOL TARTRATE 25 MG TABLET (FP) PO SCH ×2 (10:39→21:40)
[2023-04-13] MEDS: TAMSULOSIN HCL 0.4 MG CAP PO SCH (10:39)
[2023-04-13] MEDS: CITALOPRAM HYDROBROMIDE 20 MG TABLET PO SCH (10:40)
[2023-04-13] MEDS: APIXABAN 5 MG TABLET PO SCH ×2 (10:40→21:40)
[2023-04-13] MEDS: MUPIROCIN 2% TOPICAL OINTMENT FOR DECOLONIZATION NS SCH ×2 (10:40→21:39)
[2023-04-13 12:25] LABS: POTASSIUM 4.2 mmol/L (3.5-5.1)
[2023-04-13 12:29] LABS: ALBUMIN 2.5 g/dl (3.4-5.0); BLOOD UREA NITROGEN 20.5 mg/dL (7-18); CALCIUM 8.9 mg/dL (8.5-10.1)
[2023-04-13 12:32] LABS: CREATININE 0.8 mg/dL (0.55-1.3)
[2023-04-13 12:34] LABS: BILIRUBIN,TOTAL 0.3 mg/dL (0.2-1); PHOSPHOROUS 2.7 mg/dL (2.5-4.9)
[2023-04-13] MEDS: REMDESIVIR 100 MG in SODIUM CHLORIDE 250 ML IVPB SCH (21:38)
[2023-04-13] MEDS: ATORVASTATIN CA 10 MG TABLET (FP) PO SCH (21:40)
[2023-04-13] MEDS: DOCUSATE SODIUM 100 MG CAPSULE (FP) PO SCH (21:40)
[2023-04-13] MEDS: CHLORHEXIDINE GLUCONATE 4% CLEANSER FOR DECOLONIZATION TP SCH (21:40)
[2023-04-13] MEDS: MELATONIN 5 MG TABLETS PO SCH (21:41)
[2023-04-13] MEDS: LIDOCAINE PATCH REMOVAL MC SCH (21:41)
[2023-04-14] MEDS: methylPREDNISolone NA SUCC 40 MG/1 ML VIAL IVPUSH SCH ×3 (01:30→17:24)
[2023-04-14] MEDS: PIPERACILLIN/TAZOB 4.5 GM 4.5 GM in DEXTROSE 5%-WATER 100 ML IVPB SCH ×3 (01:30→17:24)
[2023-04-14] MEDS: LEVOTHYROXINE NA 125 MCG TABLET (FP) PO SCH (06:30)
[2023-04-14] MEDS: ALBUTEROL SO4 2.5/IPRATROPIUM 0.5 INH SOL 3 ML VIAL.NEB. NEB SCH ×4 (08:00→21:02)
[2023-04-14] MEDS ORDERED: DEXTROSE 50%-WATER 25 GM/50 ML DISP.SYRIN ONE (08:29)
[2023-04-14] MEDS: PANTOPRAZOLE SODIUM 40 MG VIAL IVPUSH SCH (09:07)
[2023-04-14] MEDS: LIDOCAINE 4% PATCH TP PRN (09:07)
[2023-04-14] MEDS: POLYETHYLENE GLYCOL (HEALTHYLAX) 3350 17 GM PACKET PO SCH (09:07)
[2023-04-14] MEDS: OSELTAMIVIR PHOSPHATE 75 MG CAPSULE PO SCH (09:08)
[2023-04-14] MEDS: APIXABAN 5 MG TABLET PO SCH ×2 (09:08→21:07)
[2023-04-14] MEDS: MUPIROCIN 2% TOPICAL OINTMENT FOR DECOLONIZATION NS SCH (09:08)
[2023-04-14] MEDS: TAMSULOSIN HCL 0.4 MG CAP PO SCH (09:08)
[2023-04-14] MEDS: METOPROLOL TARTRATE 25 MG TABLET (FP) PO SCH ×2 (09:08→21:06)
[2023-04-14] MEDS: CITALOPRAM HYDROBROMIDE 20 MG TABLET PO SCH (09:08)
[2023-04-14] MEDS: MULTIVITAMINS (DAILY MVI) TABLET (FP) PO SCH (09:08)
[2023-04-14] MEDS ORDERED: BENZOCAINE/MENTH/CETYLPYRD CL 1 EACH LOZENGE MM PRN (16:56)
[2023-04-14] MEDS: MELATONIN 5 MG TABLETS PO SCH (21:06)
[2023-04-14] MEDS: LIDOCAINE PATCH REMOVAL MC SCH (21:07)
[2023-04-14] MEDS: ATORVASTATIN CA 10 MG TABLET (FP) PO SCH (21:07)
[2023-04-14] MEDS: DOCUSATE SODIUM 100 MG CAPSULE (FP) PO SCH (21:07)
[2023-04-14] MEDS: CHLORHEXIDINE GLUCONATE 4% CLEANSER FOR DECOLONIZATION TP SCH (21:07)
[2023-04-15] MEDS: PIPERACILLIN/TAZOB 4.5 GM 4.5 GM in DEXTROSE 5%-WATER 100 ML IVPB SCH ×3 (01:03→17:54)
[2023-04-15] MEDS: methylPREDNISolone NA SUCC 40 MG/1 ML VIAL IVPUSH SCH ×3 (01:03→17:54)
[2023-04-15] MEDS: LEVOTHYROXINE NA 125 MCG TABLET (FP) PO SCH (06:30)
[2023-04-15] MEDS: PANTOPRAZOLE SODIUM 40 MG VIAL IVPUSH SCH (10:15)
[2023-04-15] MEDS: TAMSULOSIN HCL 0.4 MG CAP PO SCH (10:15)
[2023-04-15] MEDS: METOPROLOL TARTRATE 25 MG TABLET (FP) PO SCH ×2 (10:15→21:08)
[2023-04-15] MEDS: CITALOPRAM HYDROBROMIDE 20 MG TABLET PO SCH (10:15)
[2023-04-15] MEDS: APIXABAN 5 MG TABLET PO SCH ×2 (10:15→21:07)
[2023-04-15] MEDS: MULTIVITAMINS (DAILY MVI) TABLET (FP) PO SCH (10:16)
[2023-04-15] MEDS: POLYETHYLENE GLYCOL (HEALTHYLAX) 3350 17 GM PACKET PO SCH (11:10)
[2023-04-15] MEDS: ATORVASTATIN CA 10 MG TABLET (FP) PO SCH (21:07)
[2023-04-15] MEDS: CHLORHEXIDINE GLUCONATE 4% CLEANSER FOR DECOLONIZATION TP SCH (21:08)
[2023-04-15] MEDS: DOCUSATE SODIUM 100 MG CAPSULE (FP) PO SCH (21:08)
[2023-04-15] MEDS: MELATONIN 5 MG TABLETS PO SCH (21:08)
[2023-04-15] MEDS: LIDOCAINE PATCH REMOVAL MC SCH (21:09)
[2023-04-16] MEDS: PIPERACILLIN/TAZOB 4.5 GM 4.5 GM in DEXTROSE 5%-WATER 100 ML IVPB SCH ×3 (01:31→17:18)
[2023-04-16] MEDS: methylPREDNISolone NA SUCC 40 MG/1 ML VIAL IVPUSH SCH ×3 (01:31→17:19)
[2023-04-16] MEDS: LEVOTHYROXINE NA 125 MCG TABLET (FP) PO SCH (06:12)
[2023-04-16] MEDS: POLYETHYLENE GLYCOL (HEALTHYLAX) 3350 17 GM PACKET PO SCH (10:43)
[2023-04-16] MEDS: PANTOPRAZOLE SODIUM 40 MG VIAL IVPUSH SCH (10:43)
[2023-04-16] MEDS: APIXABAN 5 MG TABLET PO SCH ×2 (10:43→21:16)
[2023-04-16] MEDS: CITALOPRAM HYDROBROMIDE 20 MG TABLET PO SCH (10:43)
[2023-04-16] MEDS: METOPROLOL TARTRATE 25 MG TABLET (FP) PO SCH ×2 (10:44→21:16)
[2023-04-16] MEDS: MULTIVITAMINS (DAILY MVI) TABLET (FP) PO SCH (10:44)
[2023-04-16] MEDS: TAMSULOSIN HCL 0.4 MG CAP PO SCH (10:47)
[2023-04-16] MEDS ORDERED: MECLIZINE HCL 25 MG TABLET (FP) PO PRN (13:31)
[2023-04-16] MEDS ORDERED: PROCHLORPERAZINE MALEATE 5 MG TABLET PO PRN (13:31)
[2023-04-16] MEDS ORDERED: LIDOCAINE 4% PATCH TP PRN (13:31)
[2023-04-16 15:18] VITALS: BMI 24.7
[2023-04-16] MEDS: MELATONIN 5 MG TABLETS PO SCH (21:15)
[2023-04-16] MEDS: LIDOCAINE PATCH REMOVAL MC SCH (21:16)
[2023-04-16] MEDS: DOCUSATE SODIUM 100 MG CAPSULE (FP) PO SCH (21:17)
[2023-04-16] MEDS: ATORVASTATIN CA 10 MG TABLET (FP) PO SCH (21:17)
[2023-04-17] MEDS: methylPREDNISolone NA SUCC 40 MG/1 ML VIAL IVPUSH SCH ×3 (00:59→17:59)
[2023-04-17] MEDS: PIPERACILLIN/TAZOB 4.5 GM 4.5 GM in DEXTROSE 5%-WATER 100 ML IVPB SCH (01:00)
[2023-04-17] MEDS: LEVOTHYROXINE NA 125 MCG TABLET (FP) PO SCH (06:12)
[2023-04-17 07:32] LABS: HEMATOCRIT 49.2 % (35.4-49); HEMOGLOBIN 16.2 GM/dL (11.7-16.9); MCH 29.8 pg (25.7-33.7); MCHC 32.9 g/dl (32.0-35.9); MEAN CELL VOLUME 90.4 fl (80-96); MEAN PLT VOLUME 8.3 fl (7.5-11.1); PLATELET COUNT 186 10^3/uL (134-434); RBC 5.44 M/mm3 (4.00-5.60); RDW 15.4 % (11.9-15.9); WHITE BLOOD COUNT 12.4 K/mm3 (4.0-10.0)
[2023-04-17 07:48] LABS: POTASSIUM 4.4 mmol/L (3.5-5.1)
[2023-04-17 07:59] LABS: BLOOD UREA NITROGEN 22.4 mg/dL (7-18)
[2023-04-17 08:02] LABS: CALCIUM 8.9 mg/dL (8.5-10.1); MAGNESIUM 2.4 mg/dL (1.8-2.4)
[2023-04-17 08:03] LABS: CREATININE 0.9 mg/dL (0.55-1.3)
[2023-04-17 09:29] LABS: N-TERMINAL BNP 2997.6 pg/ml (5-450)
[2023-04-17] MEDS ORDERED: PANTOPRAZOLE SODIUM 40 MG VIAL IVPUSH SCH (10:00)
[2023-04-17] MEDS: MULTIVITAMINS (DAILY MVI) TABLET (FP) PO SCH (10:09)
[2023-04-17] MEDS: APIXABAN 5 MG TABLET PO SCH ×2 (10:09→21:12)
[2023-04-17] MEDS: PANTOPRAZOLE 40 MG TABLET PO SCH (10:09)
[2023-04-17] MEDS: METOPROLOL TARTRATE 25 MG TABLET (FP) PO SCH ×2 (10:09→21:12)
[2023-04-17] MEDS: CITALOPRAM HYDROBROMIDE 20 MG TABLET PO SCH (10:10)
[2023-04-17] MEDS: TAMSULOSIN HCL 0.4 MG CAP PO SCH (10:10)
[2023-04-17] MEDS: POLYETHYLENE GLYCOL (HEALTHYLAX) 3350 17 GM PACKET PO SCH (10:10)
[2023-04-17] MEDS: NITROFURANTOIN MONOHYD/M-CRYST 100 MG CAPSULE PO SCH ×2 (10:11→21:12)
[2023-04-17] MEDS ORDERED: FUROSEMIDE 40 MG/4 ML INJECTABLE VIAL IVPUSH ONE (12:33)
[2023-04-17] MEDS: METOPROLOL TARTRATE 5 MG/5 ML VIAL IVPUSH PRN (16:05)
[2023-04-17] MEDS: MELATONIN 5 MG TABLETS PO SCH (21:12)
[2023-04-17] MEDS: LIDOCAINE PATCH REMOVAL MC SCH (21:12)
[2023-04-17] MEDS: ATORVASTATIN CA 10 MG TABLET (FP) PO SCH (21:12)
[2023-04-17] MEDS: DOCUSATE SODIUM 100 MG CAPSULE (FP) PO SCH (21:13)
[2023-04-18] MEDS: methylPREDNISolone NA SUCC 40 MG/1 ML VIAL IVPUSH SCH ×3 (01:02→18:38)
[2023-04-18] MEDS: LEVOTHYROXINE NA 125 MCG TABLET (FP) PO SCH (06:02)
[2023-04-18] MEDS: APIXABAN 5 MG TABLET PO SCH ×2 (11:11→21:21)
[2023-04-18] MEDS: MULTIVITAMINS (DAILY MVI) TABLET (FP) PO SCH (11:11)
[2023-04-18] MEDS: METOPROLOL TARTRATE 25 MG TABLET (FP) PO SCH ×2 (11:11→21:19)
[2023-04-18] MEDS: TAMSULOSIN HCL 0.4 MG CAP PO SCH (11:11)
[2023-04-18] MEDS: POLYETHYLENE GLYCOL (HEALTHYLAX) 3350 17 GM PACKET PO SCH (11:12)
[2023-04-18] MEDS: NITROFURANTOIN MONOHYD/M-CRYST 100 MG CAPSULE PO SCH ×2 (11:12→21:21)
[2023-04-18] MEDS: PANTOPRAZOLE 40 MG TABLET PO SCH (11:12)
[2023-04-18] MEDS: ATORVASTATIN CA 10 MG TABLET (FP) PO SCH (21:19)
[2023-04-18] MEDS: MELATONIN 5 MG TABLETS PO SCH (21:20)
[2023-04-18] MEDS: DOCUSATE SODIUM 100 MG CAPSULE (FP) PO SCH (21:20)
[2023-04-18] MEDS: CITALOPRAM HYDROBROMIDE 20 MG TABLET PO SCH (21:21)
[2023-04-18] MEDS: LIDOCAINE PATCH REMOVAL MC SCH (21:25)
[2023-04-19] MEDS: methylPREDNISolone NA SUCC 40 MG/1 ML VIAL IVPUSH SCH ×3 (02:03→17:13)
[2023-04-19] MEDS: LEVOTHYROXINE NA 125 MCG TABLET (FP) PO SCH (06:11)
[2023-04-19] MEDS: MULTIVITAMINS (DAILY MVI) TABLET (FP) PO SCH (09:45)
[2023-04-19] MEDS: NITROFURANTOIN MONOHYD/M-CRYST 100 MG CAPSULE PO SCH ×2 (09:45→21:27)
[2023-04-19] MEDS: CITALOPRAM HYDROBROMIDE 20 MG TABLET PO SCH (09:45)
[2023-04-19] MEDS: METOPROLOL TARTRATE 25 MG TABLET (FP) PO SCH ×2 (09:45→21:26)
[2023-04-19] MEDS: PANTOPRAZOLE 40 MG TABLET PO SCH (09:45)
[2023-04-19] MEDS: TAMSULOSIN HCL 0.4 MG CAP PO SCH (09:46)
[2023-04-19] MEDS: POLYETHYLENE GLYCOL (HEALTHYLAX) 3350 17 GM PACKET PO SCH (09:46)
[2023-04-19] MEDS: APIXABAN 5 MG TABLET PO SCH ×2 (09:49→21:25)
[2023-04-19] MEDS ORDERED: METOPROLOL TARTRATE 25 MG TABLET (FP) PO ONE (10:30)
[2023-04-19] MEDS: MELATONIN 5 MG TABLETS PO SCH (21:25)
[2023-04-19] MEDS: DOCUSATE SODIUM 100 MG CAPSULE (FP) PO SCH (21:25)
[2023-04-19] MEDS: ATORVASTATIN CA 10 MG TABLET (FP) PO SCH (21:25)
[2023-04-19] MEDS: LIDOCAINE PATCH REMOVAL MC SCH (21:26)
[2023-04-20] MEDS: methylPREDNISolone NA SUCC 40 MG/1 ML VIAL IVPUSH SCH ×4 (01:06→21:46)
[2023-04-20] MEDS: LEVOTHYROXINE NA 125 MCG TABLET (FP) PO SCH (06:02)
[2023-04-20] MEDS: TAMSULOSIN HCL 0.4 MG CAP PO SCH (10:01)
[2023-04-20] MEDS: PANTOPRAZOLE 40 MG TABLET PO SCH (10:01)
[2023-04-20] MEDS: METOPROLOL TARTRATE 25 MG TABLET (FP) PO SCH ×2 (10:01→21:45)
[2023-04-20] MEDS: APIXABAN 5 MG TABLET PO SCH ×2 (10:01→21:45)
[2023-04-20] MEDS: POLYETHYLENE GLYCOL (HEALTHYLAX) 3350 17 GM PACKET PO SCH (10:01)
[2023-04-20] MEDS: MULTIVITAMINS (DAILY MVI) TABLET (FP) PO SCH (10:02)
[2023-04-20] MEDS: CITALOPRAM HYDROBROMIDE 20 MG TABLET PO SCH (10:18)
[2023-04-20] MEDS: NITROFURANTOIN MONOHYD/M-CRYST 100 MG CAPSULE PO SCH ×2 (10:18→23:30)
[2023-04-20] MEDS: FLUTICASONE/UMECLIDIN/VILANTER(200-62.5-25 TRELEGY ELLIPTA) INAHLER IH SCH (10:32)
[2023-04-20] MEDS: METOPROLOL TARTRATE 5 MG/5 ML VIAL IVPUSH PRN (10:36)
[2023-04-20] MEDS: ALBUTEROL SO4 0.083% IH SOL 2.5 MG/3 ML VIAL.NEB. NEB SCH ×2 (13:31→19:50)
[2023-04-20] MEDS: QUEtiapine FUMARATE 25 MG TABLET PO SCH (13:36)
[2023-04-20] MEDS: LIDOCAINE PATCH REMOVAL MC SCH (21:45)
[2023-04-20] MEDS: ATORVASTATIN CA 10 MG TABLET (FP) PO SCH (21:45)
[2023-04-20] MEDS: DOCUSATE SODIUM 100 MG CAPSULE (FP) PO SCH (21:45)
[2023-04-20] MEDS: MELATONIN 5 MG TABLETS PO SCH (21:46)
[2023-04-21] MEDS: LEVOTHYROXINE NA 125 MCG TABLET (FP) PO SCH (06:11)
[2023-04-21 07:24] LABS: HEMATOCRIT 53.8 % (35.4-49); HEMOGLOBIN 17.8 GM/dL (11.7-16.9); MCH 30.3 pg (25.7-33.7); MCHC 33.2 g/dl (32.0-35.9); MEAN CELL VOLUME 91.4 fl (80-96); MEAN PLT VOLUME 8.5 fl (7.5-11.1); PLATELET COUNT 195 10^3/uL (134-434); RBC 5.88 M/mm3 (4.00-5.60); RDW 16.1 % (11.9-15.9); WHITE BLOOD COUNT 17.1 K/mm3 (4.0-10.0)
[2023-04-21 07:40] LABS: POTASSIUM 4.7 mmol/L (3.5-5.1)
[2023-04-21] MEDS: ALBUTEROL SO4 0.083% IH SOL 2.5 MG/3 ML VIAL.NEB. NEB SCH ×3 (07:40→20:12)
[2023-04-21 07:43] LABS: ALBUMIN 2.6 g/dl (3.4-5.0); BLOOD UREA NITROGEN 31.6 mg/dL (7-18); CALCIUM 9.1 mg/dL (8.5-10.1)
[2023-04-21 07:46] LABS: CREATININE 0.8 mg/dL (0.55-1.3)
[2023-04-21 07:48] LABS: BILIRUBIN,TOTAL 1.2 mg/dL (0.2-1); TOT PROT 6.2 g/dl (6.4-8.2)
[2023-04-21 09:00] LABS: ANISOCYTOSIS 0; MACROCYTOSIS 0
[2023-04-21] MEDS: APIXABAN 5 MG TABLET PO SCH ×2 (10:06→21:04)
[2023-04-21] MEDS: QUEtiapine FUMARATE 25 MG TABLET PO SCH (10:06)
[2023-04-21] MEDS: MULTIVITAMINS (DAILY MVI) TABLET (FP) PO SCH (10:06)
[2023-04-21] MEDS: METOPROLOL TARTRATE 25 MG TABLET (FP) PO SCH ×2 (10:06→21:03)
[2023-04-21] MEDS: methylPREDNISolone NA SUCC 40 MG/1 ML VIAL IVPUSH SCH ×2 (10:07→21:03)
[2023-04-21] MEDS: TAMSULOSIN HCL 0.4 MG CAP PO SCH (10:07)
[2023-04-21] MEDS: PANTOPRAZOLE 40 MG TABLET PO SCH (10:07)
[2023-04-21] MEDS: POLYETHYLENE GLYCOL (HEALTHYLAX) 3350 17 GM PACKET PO SCH (10:08)
[2023-04-21] MEDS: NITROFURANTOIN MONOHYD/M-CRYST 100 MG CAPSULE PO SCH ×2 (10:17→21:05)
[2023-04-21] MEDS: CITALOPRAM HYDROBROMIDE 20 MG TABLET PO SCH (10:17)
[2023-04-21] MEDS: FLUTICASONE/UMECLIDIN/VILANTER(200-62.5-25 TRELEGY ELLIPTA) INAHLER IH SCH (11:45)
[2023-04-21] MEDS: DOCUSATE SODIUM 100 MG CAPSULE (FP) PO SCH (21:03)
[2023-04-21] MEDS: MELATONIN 5 MG TABLETS PO SCH (21:03)
[2023-04-21] MEDS: ATORVASTATIN CA 10 MG TABLET (FP) PO SCH (21:03)
[2023-04-21] MEDS: LIDOCAINE PATCH REMOVAL MC SCH (21:04)
[2023-04-22] MEDS: LEVOTHYROXINE NA 125 MCG TABLET (FP) PO SCH (06:05)
[2023-04-22] MEDS: ALBUTEROL SO4 0.083% IH SOL 2.5 MG/3 ML VIAL.NEB. NEB SCH ×3 (08:27→20:08)
[2023-04-22] MEDS: QUEtiapine FUMARATE 25 MG TABLET PO SCH (11:51)
[2023-04-22] MEDS: TAMSULOSIN HCL 0.4 MG CAP PO SCH (11:52)
[2023-04-22] MEDS: MULTIVITAMINS (DAILY MVI) TABLET (FP) PO SCH (11:52)
[2023-04-22] MEDS: PANTOPRAZOLE 40 MG TABLET PO SCH (11:52)
[2023-04-22] MEDS: APIXABAN 5 MG TABLET PO SCH ×2 (11:53→21:59)
[2023-04-22] MEDS: METOPROLOL TARTRATE 25 MG TABLET (FP) PO SCH (11:53)
[2023-04-22] MEDS: POLYETHYLENE GLYCOL (HEALTHYLAX) 3350 17 GM PACKET PO SCH (11:53)
[2023-04-22] MEDS: methylPREDNISolone NA SUCC 40 MG/1 ML VIAL IVPUSH SCH ×2 (11:55→21:59)
[2023-04-22] MEDS: NITROFURANTOIN MONOHYD/M-CRYST 100 MG CAPSULE PO SCH ×2 (12:08→21:59)
[2023-04-22] MEDS: FLUTICASONE/UMECLIDIN/VILANTER(200-62.5-25 TRELEGY ELLIPTA) INAHLER IH SCH (12:09)
[2023-04-22] MEDS ORDERED: PROCHLORPERAZINE MALEATE 5 MG TABLET PO PRN (16:14)
[2023-04-22] MEDS ORDERED: BENZOCAINE/MENTH/CETYLPYRD CL 1 EACH LOZENGE MM PRN (16:14)
[2023-04-22] MEDS ORDERED: LIDOCAINE 4% PATCH TP PRN (16:14)
[2023-04-22] MEDS: MELATONIN 5 MG TABLETS PO SCH (21:59)
[2023-04-22] MEDS: DOCUSATE SODIUM 100 MG CAPSULE (FP) PO SCH (21:59)
[2023-04-22] MEDS: LIDOCAINE PATCH REMOVAL MC SCH (22:00)
[2023-04-23] MEDS: LEVOTHYROXINE NA 125 MCG TABLET (FP) PO SCH (06:03)
[2023-04-23] MEDS: ALBUTEROL SO4 0.083% IH SOL 2.5 MG/3 ML VIAL.NEB. NEB SCH ×3 (07:30→20:50)
[2023-04-23] MEDS ORDERED: TAMSULOSIN HCL 0.4 MG CAP PO SCH (10:00)
[2023-04-23] MEDS: POLYETHYLENE GLYCOL (HEALTHYLAX) 3350 17 GM PACKET PO SCH (10:10)
[2023-04-23] MEDS: NITROFURANTOIN MONOHYD/M-CRYST 100 MG CAPSULE PO SCH ×2 (10:10→22:24)
[2023-04-23] MEDS: PANTOPRAZOLE 40 MG TABLET PO SCH (10:11)
[2023-04-23] MEDS: QUEtiapine FUMARATE 25 MG TABLET PO SCH (10:11)
[2023-04-23] MEDS: methylPREDNISolone NA SUCC 40 MG/1 ML VIAL IVPUSH SCH ×2 (10:11→22:24)
[2023-04-23] MEDS: APIXABAN 5 MG TABLET PO SCH ×2 (10:11→22:24)
[2023-04-23] MEDS: FLUTICASONE/UMECLIDIN/VILANTER(200-62.5-25 TRELEGY ELLIPTA) INAHLER IH SCH (10:12)
[2023-04-23] MEDS: MULTIVITAMINS (DAILY MVI) TABLET (FP) PO SCH (10:12)
[2023-04-23] MEDS: MELATONIN 5 MG TABLETS PO SCH (22:24)
[2023-04-23] MEDS: DOCUSATE SODIUM 100 MG CAPSULE (FP) PO SCH (22:24)
[2023-04-23] MEDS: LIDOCAINE PATCH REMOVAL MC SCH (22:25)
[2023-04-24] MEDS: LEVOTHYROXINE NA 125 MCG TABLET (FP) PO SCH (06:02)
[2023-04-24] MEDS: ALBUTEROL SO4 0.083% IH SOL 2.5 MG/3 ML VIAL.NEB. NEB SCH ×3 (07:45→20:10)
[2023-04-24] MEDS: APIXABAN 5 MG TABLET PO SCH ×2 (09:59→22:38)
[2023-04-24] MEDS: QUEtiapine FUMARATE 25 MG TABLET PO SCH (09:59)
[2023-04-24] MEDS: TAMSULOSIN HCL 0.4 MG CAP PO SCH (09:59)
[2023-04-24] MEDS: PANTOPRAZOLE 40 MG TABLET PO SCH (09:59)
[2023-04-24] MEDS: NITROFURANTOIN MONOHYD/M-CRYST 100 MG CAPSULE PO SCH ×2 (09:59→22:46)
[2023-04-24] MEDS: MULTIVITAMINS (DAILY MVI) TABLET (FP) PO SCH (10:00)
[2023-04-24] MEDS: methylPREDNISolone NA SUCC 40 MG/1 ML VIAL IVPUSH SCH ×2 (10:00→22:38)
[2023-04-24] MEDS: POLYETHYLENE GLYCOL (HEALTHYLAX) 3350 17 GM PACKET PO SCH (10:00)
[2023-04-24] MEDS: FLUTICASONE/UMECLIDIN/VILANTER(200-62.5-25 TRELEGY ELLIPTA) INAHLER IH SCH (10:01)
[2023-04-24] MEDS: DOCUSATE SODIUM 100 MG CAPSULE (FP) PO SCH (22:38)
[2023-04-24] MEDS: LIDOCAINE PATCH REMOVAL MC SCH (22:43)
[2023-04-24] MEDS: MELATONIN 5 MG TABLETS PO SCH (22:43)
[2023-04-25] MEDS: LEVOTHYROXINE NA 125 MCG TABLET (FP) PO SCH (06:04)
[2023-04-25] MEDS: ALBUTEROL SO4 0.083% IH SOL 2.5 MG/3 ML VIAL.NEB. NEB SCH ×3 (07:50→19:39)
[2023-04-25] MEDS: TAMSULOSIN HCL 0.4 MG CAP PO SCH (08:28)
[2023-04-25] MEDS: PANTOPRAZOLE 40 MG TABLET PO SCH (09:05)
[2023-04-25] MEDS: NITROFURANTOIN MONOHYD/M-CRYST 100 MG CAPSULE PO SCH ×2 (09:05→21:26)
[2023-04-25] MEDS: MULTIVITAMINS (DAILY MVI) TABLET (FP) PO SCH (09:05)
[2023-04-25] MEDS: QUEtiapine FUMARATE 25 MG TABLET PO SCH (09:05)
[2023-04-25] MEDS: APIXABAN 5 MG TABLET PO SCH ×2 (09:05→21:26)
[2023-04-25] MEDS: POLYETHYLENE GLYCOL (HEALTHYLAX) 3350 17 GM PACKET PO SCH (09:06)
[2023-04-25] MEDS: FLUTICASONE/UMECLIDIN/VILANTER(200-62.5-25 TRELEGY ELLIPTA) INAHLER IH SCH (09:06)
[2023-04-25] MEDS: methylPREDNISolone NA SUCC 40 MG/1 ML VIAL IVPUSH SCH ×2 (09:06→21:27)
[2023-04-25] MEDS: MELATONIN 5 MG TABLETS PO SCH (21:21)
[2023-04-25] MEDS: DOCUSATE SODIUM 100 MG CAPSULE (FP) PO SCH ×2 (21:26→21:37)
[2023-04-25] MEDS: LIDOCAINE PATCH REMOVAL MC SCH (21:29)
[2023-04-26] MEDS: LEVOTHYROXINE NA 125 MCG TABLET (FP) PO SCH (06:10)
[2023-04-26] MEDS: ALBUTEROL SO4 0.083% IH SOL 2.5 MG/3 ML VIAL.NEB. NEB SCH ×3 (07:15→21:22)
[2023-04-26] MEDS: TAMSULOSIN HCL 0.4 MG CAP PO SCH (08:28)
[2023-04-26] MEDS: PANTOPRAZOLE 40 MG TABLET PO SCH (09:07)
[2023-04-26] MEDS: methylPREDNISolone NA SUCC 40 MG/1 ML VIAL IVPUSH SCH ×2 (09:08→22:17)
[2023-04-26] MEDS: MULTIVITAMINS (DAILY MVI) TABLET (FP) PO SCH (09:08)
[2023-04-26] MEDS: NITROFURANTOIN MONOHYD/M-CRYST 100 MG CAPSULE PO SCH ×2 (09:08→22:17)
[2023-04-26] MEDS: APIXABAN 5 MG TABLET PO SCH ×2 (09:08→22:17)
[2023-04-26] MEDS: POLYETHYLENE GLYCOL (HEALTHYLAX) 3350 17 GM PACKET PO SCH (09:08)
[2023-04-26] MEDS: QUEtiapine FUMARATE 25 MG TABLET PO SCH (09:08)
[2023-04-26] MEDS: FLUTICASONE/UMECLIDIN/VILANTER(200-62.5-25 TRELEGY ELLIPTA) INAHLER IH SCH (10:59)
[2023-04-26] MEDS: ALPRAZolam 0.25 MG TABLET PO PRN (16:54)
[2023-04-26] MEDS: MELATONIN 5 MG TABLETS PO SCH (22:17)
[2023-04-26] MEDS: LIDOCAINE PATCH REMOVAL MC SCH (22:17)
[2023-04-26] MEDS: DOCUSATE SODIUM 100 MG CAPSULE (FP) PO SCH (22:17)
[2023-04-27] MEDS: ALPRAZolam 0.25 MG TABLET PO PRN (04:55)
[2023-04-27 05:35] VITALS: RESP 18
[2023-04-27] MEDS: LEVOTHYROXINE NA 125 MCG TABLET (FP) PO SCH (06:09)
[2023-04-27] MEDS: ALBUTEROL SO4 0.083% IH SOL 2.5 MG/3 ML VIAL.NEB. NEB SCH ×2 (07:15→14:41)
[2023-04-27] MEDS: TAMSULOSIN HCL 0.4 MG CAP PO SCH (08:38)
[2023-04-27] MEDS: MULTIVITAMINS (DAILY MVI) TABLET (FP) PO SCH (09:09)
[2023-04-27] MEDS: methylPREDNISolone NA SUCC 40 MG/1 ML VIAL IVPUSH SCH ×2 (09:09→22:43)
[2023-04-27] MEDS: PANTOPRAZOLE 40 MG TABLET PO SCH (09:09)
[2023-04-27] MEDS: APIXABAN 5 MG TABLET PO SCH ×2 (09:09→22:43)
[2023-04-27] MEDS: QUEtiapine FUMARATE 25 MG TABLET PO SCH (09:09)
[2023-04-27] MEDS: NITROFURANTOIN MONOHYD/M-CRYST 100 MG CAPSULE PO SCH ×2 (09:09→22:43)
[2023-04-27] MEDS: POLYETHYLENE GLYCOL (HEALTHYLAX) 3350 17 GM PACKET PO SCH (09:09)
[2023-04-27] MEDS: FLUTICASONE/UMECLIDIN/VILANTER(200-62.5-25 TRELEGY ELLIPTA) INAHLER IH SCH (09:10)
[2023-04-27 09:21] LABS: BASO % 0.1 % (0-2.0); EOS % 0.2 % (0-4.5); HEMATOCRIT 53.2 % (35.4-49); HEMOGLOBIN 17.6 GM/dL (11.7-16.9); LYMPH % 5.1 % (8-40); MCHC 33.2 g/dl (32.0-35.9); MEAN CELL VOLUME 90.5 fl (80-96); MEAN PLT VOLUME 9.5 fl (7.5-11.1); NEUT % 88.6 % (42.8-82.8); PLATELET COUNT 166 10^3/uL (134-434); RBC 5.88 M/mm3 (4.00-5.60); RDW 16.2 % (11.9-15.9); WHITE BLOOD COUNT 16.5 K/mm3 (4.0-10.0)
[2023-04-27 09:29] LABS: POTASSIUM 4.3 mmol/L (3.5-5.1)
[2023-04-27 09:35] LABS: ALBUMIN 2.8 g/dl (3.4-5.0); CALCIUM 9.1 mg/dL (8.5-10.1)
[2023-04-27 09:38] LABS: CREATININE 0.6 mg/dL (0.55-1.3)
[2023-04-27 09:39] LABS: BLOOD UREA NITROGEN 24.6 mg/dL (7-18); TOT PROT 6.3 g/dl (6.4-8.2)
[2023-04-27 09:40] LABS: BILIRUBIN,TOTAL 1.5 mg/dL (0.2-1)
[2023-04-27] MEDS: DOCUSATE SODIUM 100 MG CAPSULE (FP) PO SCH (22:42)
[2023-04-27] MEDS: MELATONIN 5 MG TABLETS PO SCH (22:43)
[2023-04-27] MEDS: LIDOCAINE PATCH REMOVAL MC SCH ×2 (22:45→23:28)
[2023-04-28] MEDS: ALPRAZolam 0.25 MG TABLET PO PRN ×2 (02:12→21:38)
[2023-04-28] MEDS: LEVOTHYROXINE NA 125 MCG TABLET (FP) PO SCH (06:37)
[2023-04-28] MEDS: POLYETHYLENE GLYCOL (HEALTHYLAX) 3350 17 GM PACKET PO SCH (11:43)
[2023-04-28] MEDS: TAMSULOSIN HCL 0.4 MG CAP PO SCH (11:53)
[2023-04-28] MEDS: APIXABAN 5 MG TABLET PO SCH ×2 (11:54→21:39)
[2023-04-28] MEDS: QUEtiapine FUMARATE 25 MG TABLET PO SCH (11:54)
[2023-04-28] MEDS: MULTIVITAMINS (DAILY MVI) TABLET (FP) PO SCH (11:54)
[2023-04-28] MEDS: PANTOPRAZOLE 40 MG TABLET PO SCH (11:54)
[2023-04-28] MEDS: methylPREDNISolone NA SUCC 40 MG/1 ML VIAL IVPUSH SCH ×2 (11:55→21:39)
[2023-04-28] MEDS: NITROFURANTOIN MONOHYD/M-CRYST 100 MG CAPSULE PO SCH ×2 (11:55→21:38)
[2023-04-28] MEDS: FLUTICASONE/UMECLIDIN/VILANTER(200-62.5-25 TRELEGY ELLIPTA) INAHLER IH SCH (11:55)
[2023-04-28 21:31] VITALS: BP 127/74; PULSE 116; TEMP 97.6
[2023-04-28] MEDS: MELATONIN 5 MG TABLETS PO SCH (21:38)
[2023-04-28] MEDS: DOCUSATE SODIUM 100 MG CAPSULE (FP) PO SCH (21:39)
== END 2023-04-29 10:47 | disposition expired | DRG 177 ==
LOC: JER 16:43 → JERBED 20:01 → JICU 22:23 → J2W 04-11 23:46 → J6S 04-22 16:00
PROVIDERS: ADMIT Family Medicine; ATTEND Family Medicine
PROC: XW033E5 Introduction of Remdesivir Anti-infective into Peripheral Vein, Percutaneous Approach, New Technology Group 5 (ICD-10-PCS; principal; 2023-04-09)
DX: U07.1 COVID-19 (principal); J11.08 Influenza due to unidentified influenza virus with specified pneumonia; J96.21 Acute and chronic respiratory failure with hypoxia; J15.9 Unspecified bacterial pneumonia; N39.0 Urinary tract infection, site not specified; C34.90 Malignant neoplasm of unspecified part of unspecified bronchus or lung; F03.90 Unspecified dementia, unspecified severity, without behavioral disturbance, psychotic disturbance, mood disturbance, and anxiety; Z99.81 Dependence on supplemental oxygen; E03.9 Hypothyroidism, unspecified; I48.91 Unspecified atrial fibrillation; Z79.01 Long term (current) use of anticoagulants; K21.9 Gastro-esophageal reflux disease without esophagitis; E78.5 Hyperlipidemia, unspecified; D64.9 Anemia, unspecified; I11.0 Hypertensive heart disease with heart failure; I50.9 Heart failure, unspecified; R91.1 Solitary pulmonary nodule; J43.9 Emphysema, unspecified; N40.0 Benign prostatic hyperplasia without lower urinary tract symptoms
CPT/HCPCS: 0241U-QW; 36415; 71045-TC-FY; 80048; 80053; 81003; 82803; 82962; 83735; 83880; 84100; 84484; 85025; 85027; 85610; 85730; 86140; 87040; 87081; 87086; 87186; 93005; 93010; 94640; 94660; 97116-GP; 97162-GP; 99285-25; J0248; J1100